=== PATIENT | male | born 1930 | race Caucasian/White ===

== ENCOUNTER 2016-08-01 16:25 | Emergency (ER) | payer MEDICARE, OTHER ==
[~2016-08-01] VITALS: Ht 182.9 cm; Wt 81.6 kg
[~2016-08-01 16:25] MED LIST: ALTA10CA3 PO; ASPI81TA85 PO; ATOR40TA PO; CARV12.5 PO; COUM1TAB14 PO; HYDR25TAB PO; IPRASOL4 PO; KLOR1TAB69 PO; NORV5TAB PO; dulera INH
[2016-08-01] MEDS ORDERED: ASPIRIN 81 MG CHEW TABLET PO ONE (17:00)
[2016-08-01 17:10] LABS: BASO % 0.2 % (0.0-1.0); EOS # 0.1 K/mm3 (0.0-0.50); EOS % 1.1 % (0.0-3.0); LARGE UNSTAINED CELL # 0.2 K/mm3 (0.0-0.4); LARGE UNSTAINED CELL % 2.7 % (0.0-4.0); LYMPH % 13.6 % (24.0-44.0); MEAN CORPUSCULAR HEMOGLOBIN 31.7 pg (27.0-33.0); MEAN CORPUSCULAR HGB CONC 32.5 g/dl (32.0-36.5); MEAN CORPUSCULAR VOLUME 97.5 fl (80.0-96.0); MONO # 0.4 K/mm3 (0.0-0.8); MONO % 4.8 % (0.0-5.0); NEUTROPHILS % 77.6 % (36.0-66.0); WHITE BLOOD COUNT 7.7 K/mm3 (4.0-10.0)
[2016-08-01 17:11] LABS: INR 2.3
[2016-08-01 17:27] LABS: ALBUMIN 3.8 GM/DL (3.2-5.2); ALBUMIN/GLOBULIN RATIO 1.09 (1.00-1.93); ALKALINE PHOSPHATASE 93 U/L (45-117); ALT/SGPT 15 U/L (12-78); ANION GAP 6 MEQ/L (8-16); AST/SGOT 16 U/L (15-37); BILIRUBIN,DIRECT 0.2 MG/DL (0.0-0.2); BILIRUBIN,TOTAL 0.5 MG/DL (0.2-1.0); BLOOD UREA NITROGEN 22 MG/DL (7-18); CALCIUM LEVEL 8.8 MG/DL (8.8-10.2); CARBON DIOXIDE LEVEL 27 MEQ/L (21-32); CHLORIDE LEVEL 110 MEQ/L (98-107); CREATININE FOR GFR 1.82 MG/DL (0.70-1.30); GLUCOSE, FASTING 100 MG/DL (83-110); POTASSIUM SERUM 4.4 MEQ/L (3.5-5.1); SODIUM LEVEL 143 MEQ/L (136-145); TOTAL PROTEIN 7.3 GM/DL (6.4-8.2)
[2016-08-01 17:28] LABS: PLATELET COUNT, AUTOMATED 98 k/mm3 (150-450)
[2016-08-01 21:50] VITALS: BP 164/93
--- NOTE | 2016-08-02 08:08 | REP ---
PORTABLE CHEST: AP portable view of the chest is performed and compared to a prior study of 08/20/2014. There are scattered interstitial fibrotic changes, diffusely bilaterally. Nipple shadows are seen in each lung base. No acute infiltrate is seen. The heart is normal in size. There is calcification and tortuosity of the thoracic aorta. The mediastinal silhouette is unchanged. 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 IMPRESSION: Chronic fibrotic changes. No acute infiltrate. Signed by Mio Ramos MD 08/02/2016 12:22 P
--- NOTE | 2016-08-02 21:01 | ECGEPIP ---
Stationary ECG Study [facility] - ED Test Date: 2016-08-01 Pat Name: JUVENTINO MCDUFFIE Department: Room: - Gender: M Prosthetist: jennifer : 1930 Requested By: ROSA ELENA ROY Order Number: [id number] Reading MD: Beryl Molina Measurements Intervals [place] Rate: 68 P: 41 MT: 100 QRS: 56 QRSD: 136 T: 24 QT: 420 QTc: 447 Interpretive Statements SINUS RHYTHM WITH SHORT MT INTERVAL RIGHT BUNDLE BRANCH BLOCK LOW QRS VOLTAGE LIMB LEADS CW 08/16/14 - RATE UNCHANGED NONSPECIFIC ST T WAVE CHANGES Electronically Signed On 08-02-2016 21:00:53 EDT by Beryl Molina
--- NOTE | 2016-08-04 10:10 | ECGEPIP ---
Stationary ECG Study [facility] - ED Test Date: 2016-08-01 Pat Name: JUVENTINO MCDUFFIE Department: Room: - Gender: M Director Operations: : 1930 Requested By: ROSA ELENA ROY Order Number: [id number] Reading MD: Tia Rios Measurements Intervals [place] Rate: 75 P: 66 OR: 122 QRS: 76 QRSD: 120 T: 21 QT: 394 QTc: 440 Interpretive Statements SINUS RHYTHM RIGHT BUNDLE BRANCH BLOCK SIMILAR 08/01/16 Electronically Signed On 08-04-2016 10:10:04 EDT by Tia Rios
== END 2016-08-01 22:05 | disposition home or self-care (01) ==
LOC: EDBD 16:25 → M ED 17:09
DX: R07.89 Other chest pain (principal); Z86.73 Personal history of transient ischemic attack (TIA), and cerebral infarction without residual deficits; Z95.5 Presence of coronary angioplasty implant and graft; Z95.0 Presence of cardiac pacemaker; F17.200 Nicotine dependence, unspecified, uncomplicated; Z82.49 Family history of ischemic heart disease and other diseases of the circulatory system; I45.10 Unspecified right bundle-branch block; Z79.82 Long term (current) use of aspirin; Z79.01 Long term (current) use of anticoagulants; Z79.899 Other long term (current) drug therapy